=== PATIENT | male | born 1935 | race Caucasian/White ===

== ENCOUNTER 2017-08-29 04:10 | Inpatient (IN) | payer OTHER ==
--- NOTE | 2017-08-29 04:23 | PDOC ---
History of Present Illness - General Chief Complaint: Syncope/Near Syncope Stated Complaint: SUGAR PROBLEM/VOMITING/DIARRHEA Time Seen by Provider: 08/29/17 04:22 - History of Present Illness Initial Comments: 08/29/17 04:39 The patient is an 82 year old male with a history of HTN, HLD, DM who presents for evaluation of syncope, vomiting, diarrhea. The patient reports that he had the sensation to go to the bathroom earlier this evening and syncopized on his way to the bathroom falling to the floor. The patient states that he did lose consciousness, but denies any head trauma. He states that he had an episode of non-bilious, non-bloody vomiting as well as diarrhea after the syncopal episode prompting his presentation to the ED for further evaluation. He otherwise denies fevers, chills, SOB, chest pain, palpitations, abdominal pain, or changes with urination. Past History - Past Medical History Allergies/Adverse Reactions: Allergies Allergy/AdvReac Type Severity Reaction Status Date / Time No Known Allergies Allergy Verified 08/29/17 04:24 Home Medications: Ambulatory Orders Aspirin [ASA -] 81 mg PO DAILY 08/29/17 Atorvastatin Ca [Lipitor] 40 mg PO HS 08/29/17 Ezetimibe [Zetia] 10 mg PO DAILY 08/29/17 Insulin Glargine,Hum.rec.anlog [Lantus] 30 unit SQ HS 08/29/17 Lisinopril 10 mg PO DAILY 08/29/17 Metformin HCl 500 mg PO BID 08/29/17 levETIRAcetam [Keppra -] 500 mg PO BID 08/29/17 Review of Systems - Review of Systems Comments:: 08/29/17 04:42 Constitutional: No fevers, chills, fatigue, malaise HEENT: No Rhinorrhea, nasal congestion, visual changes Cardiovascular: Syncope. No chest pain, palpitations, lightheadedness Respiratory: No Cough, SOB, Hemoptysis, Gastrointestinal: Nausea, Vomiting, Diarrhea. No Abdominal pain, Constipation, Melena Genitourinary: No Dysuria, Frequency, Urgency, Hesitancy, Hematuria, Flank pain Musculoskeletal: No Myalgia, arthralgia Skin: No rashes, itching, bruising, pallor Neurologic: No Headache, Dizziness, Numbness, Weakness, or Tingling Psychiatric: No Hallucinations. No SI or HI *Physical Exam - Physical Exam Comments: 08/29/17 04:42 General Appearance: Nourished. No Apparent Distress HEENT: EOMI, MEENA. No Pharyngeal Erythema, Tonsillar Exudate, Tonsillar Erythema Neck: No Cervical Lymphadenopathy Respiratory/Chest: Lungs Clear, Normal Breath Sounds. No Crackles, Rales, Rhonchi, Wheezing Cardiovascular: Regular Rhythm, Regular Rate. No Murmur, Gallops, Rubs Gastrointestinal/Abdominal: Normal Bowel Sounds, Soft. No Guarding, Rebound, Tenderness Musculoskeletal: No CVA Tenderness Extremity: Normal Capillary Refill Integumentary: Normal Color, Dry, Warm Neurologic: roll grinder II-XII NML intact, Fully Oriented, Alert, Normal Mood/Affect, Normal Response, Motor Strength 5/5. Normal Finger to Nose and Heel to Brunson Heart Score/ECG Review #1 ECG reviewed & interpreted by me at: 04:45 General ECG Interpretation: Sinus Rhythm, Normal Rate, Normal Intervals, No acute ischemic changes ED Treatment Course - LABORATORY CBC & Chemistry Diagram: 08/29/17 04:40 08/29/17 04:40 Medical Decision Making - Medical Decision Making 08/29/17 04:43 The patient is an 82 year old male with a history of HTN, HLD, DM who presents for evaluation of syncope, vomiting, diarrhea. Differential includes but is not limited to: ACS, Hypoglycemia, Vasovagal, Infectious, Metabolic derangement. Given the patient's history of standing to go to the bathroom, it is possible his syncopal episodes was vasovagal in nature from standing to quickly. However, we will obtain a cbc, cmp, troponin, lipase, ua, ekg, coags to evaluate further for possible etiologies. We will treat with iv fluids here in the ED and continue to monitor and reassess. 08/29/17 07:00 CBC, cmp, troponin, lipase are unremarkable. Chest plain film are unremarkable as preliminarily read by ER physician. Given the patient's syncopal episode, we will obtain a CTA to evaluate for any evidence of a AAA. We will continue to monitor and reassess. Patient signed out to the day team pending CT imaging and likely admission. *DC/Admit/Observation/Transfer Diagnosis at time of Disposition: Syncope - Discharge Dispostion Condition at time of disposition: Fair - Referrals - Patient Instructions - Post Discharge Activity
[2017-08-29 04:24] VITALS: BMI 22.8
--- NOTE | 2017-08-29 04:24 | PDOC ---
Attending Attestation - HPI HPI: 08/29/17 05:09 Patient is a 82 year old male with a significant past medical history of Diabetes (on insulin) who presents to the ED with complaints of syncope that occured 2 hours prior to ED arrival. As per patient's son, patient woke up this morning and while walking to the bathroom, lost consciousness and fell onto his right elbow and back. Patient's son reports patient experienced associated symptoms of vomiting and diarrhea, prompting him to come into the ED for further evaluation. Patient's reports patient takes insulin 4 times per day, 3 in the morning and 1 at night, and has not been compliant with medications since Friday. Denies chest pain, Sob. Denies head trauma, change in vision, Denies contact with sick individuals, out of state travelling. Denies any other symptoms. Allergies: none Social history: No smoking. No alcohol. No illicit drugs. Surgical history: None PMD: Dr. Gonzalez 08/29/17 05:09 <Hemal Carrion - Last Filed: 08/29/17 05:09> - Resident Resident Name: Gm Rivera - ED Attending Attestation I have performed the following: I have examined & evaluated the patient, The case was reviewed & discussed with the resident, I agree w/resident's findings & plan, Exceptions are as noted - Physicial Exam PE: GENERAL: Awake, alert, and fully oriented, in no acute distress HEAD: No signs of trauma EYES: PERRLA, EOMI, sclera anicteric, conjunctiva clear ENT: Auricles normal inspection, hearing grossly normal, nares patent, oropharynx clear without exudates. Dry mucosa NECK: Normal ROM, supple, no lymphadenopathy, JVD, or masses LUNGS: Breath sounds equal, clear to auscultation bilaterally. No wheezes, and no crackles HEART: Regular rate and rhythm, normal S1 and S2, no murmurs, rubs or gallops ABDOMEN: Soft, nontender, normoactive bowel sounds. No guarding, no rebound. No masses EXTREMITIES: Normal range of motion, no edema. No clubbing or cyanosis. No cords, erythema, or tenderness NEUROLOGICAL: Cranial nerves II through XII grossly intact. Normal speech, normal gait. Motor and sensation intact. SKIN: Warm, Dry, normal turgor, no rashes or lesions noted. - Medical Decision Making Pt with syncopal event while he was walking to bathroom. Syncope was followed by an episode of vomiting and diarrhea. Patient currently asymptomatic. Will obtain labs including cardiacs and lipase, CXR, EKG. CTA to r/o AAA. <Ana Burgos - Last Filed: 08/29/17 06:04>
[2017-08-29] MEDS ORDERED: SODIUM CHLORIDE 1,000 ML IV STA (04:35)
[2017-08-29 05:17] LABS: HEMOGLOBIN 14.5 GM/dL (11.7-16.9); RDW 13.5 % (11.9-15.9)
[2017-08-29 05:24] LABS: HEMATOCRIT 40.8 % (35.4-49); MCH 32.7 pg (25.7-33.7); MCHC 35.7 g/dl (32.0-35.9); MEAN CELL VOLUME 91.8 fl (80-96); MEAN PLT VOLUME 9.1 fl (7.5-11.1); PLATELET COUNT 147 K/MM3 (134-434); RBC 4.44 M/mm3 (4.00-5.60); WHITE BLOOD COUNT 8.2 K/mm3 (4.0-10.0)
[2017-08-29 05:41] LABS: ALBUMIN 4.1 g/dl (3.4-5.0); ANION GAP 4 (8-16); BLOOD UREA NITROGEN 18 mg/dL (7-18); CALCIUM 8.4 mg/dL (8.5-10.1); CHLORIDE 104 mmol/L (98-107); CO2 30 mmol/L (21-32); CREATININE 1.1 mg/dL (0.7-1.3); GLUCOSE,RANDOM 281 mg/dL (74-106); LIPASE 148 U/L (73-393); POTASSIUM 4.4 mmol/L (3.5-5.1); SGOT/AST 24 U/L (15-37); SGPT/ALT 37 U/L (12-78); SODIUM 138 mmol/L (136-145); TOT PROT 7.5 g/dl (6.4-8.2)
[2017-08-29 05:43] LABS: ALK PHOS 79 U/L (45-117)
[2017-08-29 05:55] LABS: INR 0.99 (0.82-1.09); PROTHROMBIN TIME (PATIENT) 11.2 SEC (9.7-13.0)
[2017-08-29 05:57] LABS: ACTIVATED PTT 28.8 SECONDS (26.9-34.4)
[2017-08-29 07:38] LABS: URINE APPEARANCE CLEAR; URINE BILIRUBIN NEGATIVE (<2.0 mg/dL); URINE COLOR LTYELLOW; URINE GLUCOSE (UA) 3+ (NEGATIVE); URINE KETONE NEGATIVE (NEGATIVE); URINE LEUK ESTERASE NEGATIVE (NEGATIVE); URINE NITRITE NEGATIVE (NEGATIVE); URINE PROTEIN NEGATIVE (NEGATIVE); URINE UROBILINOGEN NEGATIVE mg/dL (0.2-1.0)
--- NOTE | 2017-08-29 07:49 | PDOC ---
*Physical Exam - Vital Signs Last Vital Signs Temp Pulse Resp BP Pulse Ox 97.9 F 79 18 122/62 100 08/29/17 04:22 08/29/17 04:22 08/29/17 04:22 08/29/17 04:22 08/29/17 04:22 - Physical Exam General Appearance: Yes: Nourished, Thin Neck: positive: Trachea midline, Supple Respiratory/Chest: positive: Lungs Clear Cardiovascular: positive: S1, S2 Extremity: positive: Normal Capillary Refill, Normal Inspection Integumentary: positive: Normal Color, Dry, Warm Neurologic: positive: Alert ED Treatment Course - LABORATORY CBC & Chemistry Diagram: 08/29/17 04:40 08/29/17 04:40 - ADDITIONAL ORDERS Additional order review: Laboratory Results 08/29/17 08/29/17 08/29/17 04:40 04:40 04:29 PT with INR 11.20 INR 0.99 PTT (Actin FS) 28.8 Sodium 138 Potassium 4.4 Chloride 104 Carbon Dioxide 30 Anion Gap 4 L BUN 18 Creatinine 1.1 Creat Clearance w eGFR > 60 POC Glucometer [phone] Random Glucose 281 H Calcium 8.4 L Total Bilirubin 1.0 AST 24 ALT 37 Alkaline Phosphatase 79 Creatine Kinase 184 Creatine Kinase Index 0.5 CK-MB (CK-2) < 1.000 Troponin I < 0.02 Total Protein 7.5 Albumin 4.1 Lipase 148 08/29/17 08/29/17 04:40 04:29 RBC 4.44 MCV 91.8 MCHC 35.7 RDW 13.5 MPV 9.1 Neutrophils % No Result Required. Lymphocytes % No Result Required. POC Glucometer [phone] - Medications Given in the ED: ED Medications Discontinued Medications Generic Name Dose Route Start Last Admin Trade Name Freq PRN Reason Stop Dose Admin Sodium Chloride 1,000 mls @ 1,000 mls/hr 08/29/17 04:35 08/29/17 04:51 Normal Saline - IV 08/29/17 05:34 1,000 mls/hr ASDIR STA Administration Medical Decision Making - Medical Decision Making 08/29/17 07:39 Patient signed out by Dr. Rivera (Resident) and Dr. Burgos (Attending) 82 year old male presents for syncopal episode - r/o ACS, hypoglycemia, infectious etiology as well as AAA. Awaiting CTA. 08/29/17 07:49 CTA completed. Patient resting comfortably. 08/29/17 07:55 Troponin (-) x1, CMP unremarkable excepting hyperglycemia (281) - patient will likely require admission for further evaluation of his syncopal episode including KEENA. 08/29/17 09:05 Wet read of CTA shows no AAA, no PE. Will page Dr. Gonzalez for admission. 08/29/17 10:[address] Garcia. Patient counseled on POC. Will continue to monitor while in ED. *DC/Admit/Observation/Transfer Diagnosis at time of Disposition: Syncope - Discharge Dispostion Condition at time of disposition: Fair Admit: Yes - Referrals - Patient Instructions - Post Discharge Activity
--- NOTE | 2017-08-29 09:42 | EKG ---
Test Reason : Blood Pressure : / mmHG Vent. Rate : 079 BPM Atrial Rate : 079 BPM P-R Int : 174 ms QRS Dur : 098 ms QT Int : 380 ms P-R-T Axes : 055 066 063 degrees QTc Int : 435 ms NORMAL SINUS RHYTHM NORMAL ECG NO PREVIOUS ECGS AVAILABLE Confirmed by DIANE VILLASENOR MD ([id number]) on 08/29/2017 9:41:58 AM Referred By: Confirmed By:DIANE VILLASENOR MD
--- NOTE | 2017-08-29 10:08 | HP ---
Admitting History and Physical - Admission History of Present Illness: 82 year old male with a history of HTN, HLD, DM who presents for evaluation of syncope, vomiting, diarrhea. The patient reports that he had the sensation to go to the bathroom earlier this evening and syncopized on his way to the bathroom falling to the floor. The patient states that he did lose consciousness, but denies any head trauma. He states that he had an episode of non-bilious, non-bloody vomiting as well as diarrhea after the syncopal episode prompting his presentation to the ED for further evaluation. He otherwise denies fevers, chills, SOB, chest pain, palpitations, abdominal pain, or changes with urination. - Past Medical History Cardiovascular: Yes: HTN, Hyperlipdemia Pulmonary: No: COPD Gastrointestinal: No: Cancer Heme/Onc: No: Anemia Endocrine: Yes: Diabetes Mellitus - Smoking History Smoking history: Never smoked Home Medications - Allergies Allergies/Adverse Reactions: Allergies Allergy/AdvReac Type Severity Reaction Status Date / Time No Known Allergies Allergy Verified 08/29/17 04:24 - Home Medications Home Medications: Ambulatory Orders Unobtainable [Unobtainable] 08/29/17 Review of Systems - Review of Systems Cardiovascular: denies: Chest Pain Respiratory: denies: SOB, SOB on Exertion Gastrointestinal: reports: Diarrhea, Vomiting. denies: Abdominal Pain Genitourinary: reports: No Symptoms Neurological: reports: Change in LOC, Dizziness, Syncope, Weakness Physical Examination Vital Signs: Vital Signs Temperature 97.9 F 08/29/17 04:22 Pulse Rate 77 08/29/17 07:50 Respiratory Rate 18 08/29/17 07:50 Blood Pressure 124/80 08/29/17 07:50 O2 Sat by Pulse Oximetry (%) 100 08/29/17 07:50 Cardiovascular: Yes: S1, S2 Respiratory: Yes: Regular, CTA Bilaterally Gastrointestinal: Yes: Normal Bowel Sounds, Soft. No: Tenderness Edema: No Neurological: Yes: Alert, Oriented. No: Confusion, Facial Droop Labs: CBC, BMP 08/29/17 04:40 08/29/17 04:40 Imaging - Results Cat Scan: Report Reviewed (CTA NAD) Problem List - Problems (1) Syncope Assessment/Plan: - -may stanislaw been orthostatic -check bp -tele -cardio and neuro -echo and carotid Code(s): R55 - SYNCOPE AND COLLAPSE (2) HTN (hypertension) Assessment/Plan: monitor off meds Code(s): I10 - ESSENTIAL (PRIMARY) HYPERTENSION (3) HLD (hyperlipidemia) Assessment/Plan: check lipids statin Code(s): E78.5 - HYPERLIPIDEMIA, UNSPECIFIED (4) Diabetes Assessment/Plan: -bgm with coverage Code(s): E11.9 - TYPE 2 DIABETES MELLITUS WITHOUT COMPLICATIONS
[2017-08-29] MEDS ORDERED: ASPIRIN COATED 81 MG TABLET.EC ONE (12:18)
[2017-08-29] MEDS: ASPIRIN COATED 81 MG TABLET.EC PO SCH (12:31)
[2017-08-29] MEDS: INSULIN SLIDING SCALE (NOVOLOG) 1 VIAL SQ SCH ×4 (12:31→21:11)
[2017-08-29 12:33] LABS: CHOLESTEROL 143 mg/dL (50-200); HDL CHOLESTEROL 60 mg/dL (40-60); TRIGLYCERIDES 63 mg/dL (35-160)
[2017-08-29] MEDS ORDERED: INSULIN (NOVOLOG) ASPART 100 UNITS/ML 10ML VIAL ONE ×2 (12:36→21:07)
--- NOTE | 2017-08-29 15:26 | CON.CARD ---
Consult Consult Specialty:: Cardiology Referred by:: Dr. Garcia Reason for Consultation:: Syncope - History of Present Illness Chief Complaint: Syncope History of Present Illness: 82 year old man with a PMHx of syncope 5 years ago, HTN, DM (on insulin) who presented to the ED 08/29/2017 with syncope. The patient had brief episode of loss of consciousness this morning while walking to the bathroom, fell onto his right elbow and back, followed by diarrhea and vomiting. He denies chest pain, SOB, palpitation, dizziness, edema , orthopnea or PND. ED tests: ECG 08/29/2017: Sinus rhythm, normal ECG. Echo 08/29/2017: Normal LV size, wall motion and systolic function. LVEF = 60-65% . Normal RV. No significant valvular abnormality. Carotid duplex: Intimal thickening and small plaques. No hemodynamically significant stenosis. CTA of chest and abdomen: No aortic aneurysm. - History Source History Provided By: Patient, Family Member Limitations to Obtaining History: No Limitations - Past Medical History Cardio/Vascular: Yes: HTN, Hyperlipdemia Pulmonary: No: COPD Gastrointestinal: No: Cancer Endocrine: Yes: Diabetes Mellitus - Smoking History Smoking history: Never smoked Home Medications - Allergies Allergies/Adverse Reactions: Allergies Allergy/AdvReac Type Severity Reaction Status Date / Time No Known Allergies Allergy Verified 08/29/17 04:24 - Home Medications Home Medications: Ambulatory Orders Unobtainable [Unobtainable] 08/29/17 Review of Systems - Review of Systems Constitutional: reports: No Symptoms Eyes: reports: No Symptoms HENT: reports: No Symptoms Neck: reports: No Symptoms Cardiovascular: reports: No Symptoms Respiratory: reports: No Symptoms Gastrointestinal: reports: Diarrhea, Vomiting Genitourinary: reports: No Symptoms Breasts: reports: No Symptoms Reported Integumentary: reports: No Symptoms Neurological: reports: Change in LOC Endocrine: reports: No Symptoms Hematology/Lymphatic: reports: No Symptoms Vital Signs: Vital Signs Temperature 97.9 F 08/29/17 04:22 Pulse Rate 77 08/29/17 07:50 Respiratory Rate 18 08/29/17 07:50 Blood Pressure 124/80 08/29/17 07:50 O2 Sat by Pulse Oximetry (%) 100 08/29/17 07:50 General: Well developed. Well nourished. No acute distress. Head: Normocephalic. Atraumatic, Eyes: PERRLA, EOMI. Sclerae anicteric. Conjunctivae clear. Neck: Supple. No JVD. No bruits. Heart: Normal S1, S2: Regularly regular rhythm and rate. No murmur. No gallop or rub. Lungs: Symmetrical air entry. Clear to auscultation. No crackle. No wheezing or rhonchi. Abdomen: Soft. Bowel sound positive. Non tender. No masses. Extremities: No edema. No clubbing or cyanosis. PD 2+, equal bilaterally. Neuro: Intact, no focal findings. AAO X3. - Other Data Labs, Other Data: CBC, BMP 08/29/17 04:40 08/29/17 04:40 INR, PTT INR 0.99 (0.82-1.09) 08/29/17 04:40 Troponin, BNP 08/29/17 08/29/17 04:40 11:52 Troponin I < 0.02 < 0.02 Troponin, BNP 08/29/17 08/29/17 04:40 11:52 Troponin I < 0.02 < 0.02 Assessment/Plan 82 year old man with a PMHx of syncope 5 years ago, HTN, DM (on insulin) who presented to the ED 08/29/2017 with recurrent syncope. ED tests: ECG 08/29/2017: Sinus rhythm, normal ECG. Echo 08/29/2017: Normal LV size, wall motion and systolic function. LVEF = 60-65% . Normal RV. No significant valvular abnormality. Carotid duplex: Intimal thickening and small plaques. No hemodynamically significant stenosis. CTA of chest and abdomen: No aortic aneurysm. -Recurrent syncope, possible vasovagal. The patient had extensive work up in ED. Check orthostasis and rule out hypoglycemia recommended. Out patient cardiac follow up for possible tilt table test. No further cardiac test recommended during this admission. Please call us for reconsult as needed.
--- NOTE | 2017-08-29 19:28 | CONSULT ---
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 Examined at the bedside with his children who confirm the history of multiple fainting spells SINCE CHILDHOOD. All are preceded by a stereotyped "dizziness" followed by LOC with witness "shaking in the past. Was on Tegretol 400 mg q 8hrs for many years, but apparently D/C'ed without consequence as Pt "hasn't fainted in 4 or 5 years." Yesterday awoke from sleep around 2 AM and developed dizziness and LOC. Fell next to his bed. Afterward had persistent nausea and vomiting. CT of head (reviewed): Mild atrophy. Normal for age. No traumatic lesions. Carotid duplex: Intimal thickening without sig stenosis. Elevated BG noted in ER EXAM: No bruits. Cor reg NEURO: MS/speech: Normal CN II-XII: normal without nystagmus Motor: No drift or tremor. Normal strength, tone, artur. Nl reflexes except absent AJ's. Toes downgoing Coord: No FTN dystaxia. Sensory: Reduced vibration feet Gait: Sl wide-based. IMP: Non-focal exam sig for mild-moderate diabetic peripheral neuropathy Syncope vs. Seizure. SUGGEST: Agree with telemetry, cardiac work-up Check orthostatic BP's Begin Keppra 500 mg PO q 12 hrs. Neuro f/u and EEG as out patient. Thank you very much, Edgar Barba MD
[2017-08-29] MEDS: levETIRAcetam 250 MG TABLET (FP) PO SCH (21:11)
[2017-08-29] MEDS: levETIRAcetam 500 MG TABLET (FP) PO SCH (21:11)
[2017-08-29] MEDS: HEPARIN NA (PORCINE) 5,000 UNITS/ML 1ML VIAL SQ SCH (21:11)
[2017-08-29] MEDS ORDERED: ATORVASTATIN CA 20 MG TABLET (FP) PO SCH (22:00)
[2017-08-30] MEDS ORDERED: MAG HYDROX/AL HYDROX/SIMETH 30 ML UNIT-DOSE CUP PO ONE (00:32)
[2017-08-30] MEDS: INSULIN SLIDING SCALE (NOVOLOG) 1 VIAL SQ SCH ×2 (06:18→12:12)
[2017-08-30] MEDS ORDERED: PT OWN MED DRAWER 7, Y5N ONE (06:34)
[2017-08-30 07:28] LABS: BASO % 0.2 % (0-2.0); EOS % 0.8 % (0-4.5); HEMATOCRIT 37.6 % (35.4-49); HEMOGLOBIN 13.2 GM/dL (11.7-16.9); LYMPH % 24.9 % (8-40); MCH 32.2 pg (25.7-33.7); MCHC 35.1 g/dl (32.0-35.9); MEAN CELL VOLUME 91.8 fl (80-96); MEAN PLT VOLUME 9.3 fl (7.5-11.1); MONO % 6.2 % (3.8-10.2); NEUT % 67.9 % (42.8-82.8); PLATELET COUNT 149 K/MM3 (134-434); RDW 13.4 % (11.9-15.9); WHITE BLOOD COUNT 5.8 K/mm3 (4.0-10.0)
[2017-08-30 08:50] LABS: CHLORIDE 102 mmol/L (98-107); POTASSIUM 3.9 mmol/L (3.5-5.1); SODIUM 137 mmol/L (136-145)
[2017-08-30 09:16] LABS: ALBUMIN 3.7 g/dl (3.4-5.0); ALK PHOS 67 U/L (45-117); ANION GAP 8 (8-16); BILIRUBIN,TOTAL 1.2 mg/dL (0.2-1.0); BLOOD UREA NITROGEN 16 mg/dL (7-18); CALCIUM 8.6 mg/dL (8.5-10.1); CO2 27 mmol/L (21-32); CREATININE 0.9 mg/dL (0.7-1.3); GLUCOSE,RANDOM 224 mg/dL (74-106); SGOT/AST 20 U/L (15-37); SGPT/ALT 28 U/L (12-78); TOT PROT 6.8 g/dl (6.4-8.2)
[2017-08-30] MEDS: levETIRAcetam 500 MG TABLET (FP) PO SCH (10:07)
[2017-08-30] MEDS: levETIRAcetam 250 MG TABLET (FP) PO SCH (10:07)
[2017-08-30] MEDS: HEPARIN NA (PORCINE) 5,000 UNITS/ML 1ML VIAL SQ SCH (10:07)
[2017-08-30] MEDS: ASPIRIN COATED 81 MG TABLET.EC PO SCH (10:07)
[2017-08-30] MEDS ORDERED: INSULIN (NOVOLOG) ASPART 100 UNITS/ML 10ML VIAL ONE (11:11)
--- NOTE | 2017-08-30 11:30 | EKG ---
Test Reason : Blood Pressure : / mmHG Vent. Rate : 066 BPM Atrial Rate : 066 BPM P-R Int : 184 ms QRS Dur : 100 ms QT Int : 400 ms P-R-T Axes : 056 050 057 degrees QTc Int : 419 ms NORMAL SINUS RHYTHM WITH SINUS ARRHYTHMIA NORMAL ECG WHEN COMPARED WITH ECG OF 29-AUG-2017 10:33, NO SIGNIFICANT CHANGE WAS FOUND Confirmed by BONILLA SOLIS MD ([id number]) on 08/30/2017 11:30:38 AM Referred By: Dimitri JARRELL Confirmed By:BONILLA SOLIS MD
--- NOTE | 2017-08-30 11:34 | EKG ---
Test Reason : Blood Pressure : / mmHG Vent. Rate : 082 BPM Atrial Rate : 082 BPM P-R Int : 186 ms QRS Dur : 086 ms QT Int : 362 ms P-R-T Axes : 055 042 057 degrees QTc Int : 422 ms NORMAL SINUS RHYTHM LOW VOLTAGE QRS BORDERLINE ECG WHEN COMPARED WITH ECG OF 29-AUG-2017 04:45, NO SIGNIFICANT CHANGE WAS FOUND Confirmed by BONILLA SOLIS MD ([id number]) on 08/30/2017 11:33:52 AM Referred By: Confirmed By:BONILLA SOLIS MD
--- NOTE | 2017-08-30 12:34 | DS ---
Physical Examination Vital Signs: Vital Signs Temperature 98.2 F 08/30/17 05:45 Pulse Rate 68 08/30/17 05:45 Respiratory Rate 16 08/30/17 08:47 Blood Pressure 120/54 08/30/17 05:45 O2 Sat by Pulse Oximetry (%) 96 08/30/17 08:47 Constitutional: Yes: Well Nourished, No Distress, Calm Cardiovascular: Yes: Regular Rate and Rhythm Respiratory: Yes: Regular Gastrointestinal: Yes: Normal Bowel Sounds, Soft Neurological: Yes: Alert, Oriented Psychiatric: Yes: Alert, Oriented Labs: CBC, BMP 08/30/17 06:30 08/30/17 06:30 Discharge Summary Reason For Visit: SYNCOPE Current Active Problems Diabetes (Acute) HLD (hyperlipidemia) (Acute) HTN (hypertension) (Acute) Syncope (Acute) Hospital Course: 82 year old male with a history of HTN, HLD, DM who presents for evaluation of syncope, vomiting, diarrhea. The patient reports that he had the sensation to go to the bathroom earlier this evening and syncopized on his way to the bathroom falling to the floor. The patient states that he did lose consciousness, but denies any head trauma. He states that he had an episode of non-bilious, non-bloody vomiting as well as diarrhea after the syncopal episode prompting his presentation to the ED for further evaluation. He otherwise denies fevers, chills, SOB, chest pain, palpitations, abdominal pain, or changes with urination. Condition: Stable - Instructions Referrals: Kelvin Gonzalez MD [Primary Care Provider] - Edgar Barba MD [Staff Physician] - Disposition: HOME - Home Medications Comprehensive Discharge Medication List: Ambulatory Orders Aspirin [ASA -] 81 mg PO DAILY 08/29/17 Atorvastatin Ca [Lipitor] 40 mg PO HS 08/29/17 Ezetimibe [Zetia] 10 mg PO DAILY 08/29/17 Insulin Glargine,Hum.rec.anlog [Lantus] 30 unit SQ HS 08/29/17 Lisinopril 10 mg PO DAILY 08/29/17 Metformin HCl 500 mg PO BID 08/29/17 levETIRAcetam [Keppra -] 500 mg PO BID 08/29/17
[2017-08-30 13:34] VITALS: BP 113/60; PULSE 70; TEMP 98.5
== END 2017-08-30 14:06 | disposition home or self-care (01) | DRG 312 ==
LOC: JER 04:10 → JERBED 09:38 → OBSVTOIN 10:03 → J4S 15:03
PROVIDERS: ADMIT Family Medicine; ATTEND Family Medicine
DX: R55 Syncope and collapse (principal); E11.42 Type 2 diabetes mellitus with diabetic polyneuropathy; E78.5 Hyperlipidemia, unspecified; I10 Essential (primary) hypertension; R11.10 Vomiting, unspecified; R19.7 Diarrhea, unspecified; Z79.4 Long term (current) use of insulin
CPT/HCPCS: 36415; 70450-TC; 71045-TC-FY; 71275-TC; 74174-TC; 80053; 80061; 81003; 82550; 82553; 82607; 82962; 83036; 83690; 83721; 84443; 84484; 85025; 85610; 85730; 87086; 87186; 93005; 93010; 93306-TC; 93880-TC; 99285-25; G0378; J1644; J7030

== ENCOUNTER 2020-05-07 11:47 | Observation (INO) | payer OTHER ==
[2020-05-07 11:56] VITALS: BMI 24.5
[2020-05-07 13:04] LABS: BASO % 0.3 % (0-2.0); EOS % 0.2 % (0-4.5); HEMATOCRIT 45.7 % (35.4-49); HEMOGLOBIN 15.7 GM/dL (11.7-16.9); LYMPH % 10.5 % (8-40); MCH 31.8 pg (25.7-33.7); MCHC 34.4 g/dl (32.0-35.9); MEAN CELL VOLUME 92.3 fl (80-96); MEAN PLT VOLUME 9.6 fl (7.5-11.1); MONO % 4.5 % (3.8-10.2); NEUT % 84.5 % (42.8-82.8); PLATELET COUNT 158 K/MM3 (134-434); RBC 4.95 M/mm3 (4.00-5.60); RDW 12.9 % (11.9-15.9); WHITE BLOOD COUNT 7.9 K/mm3 (4.0-10.0)
[2020-05-07 13:04] LABS: EPI CELLS 4 /uL (0-25.1); HYALINE CASTS 1 /uL (0-3.1); URINE APPEARANCE CLEAR; URINE BACTERIA 4 /uL (0-1359); URINE BILIRUBIN NEGATIVE (NEGATIVE); URINE COLOR YELLOW; URINE GLUCOSE (UA) 2+ (NEGATIVE); URINE KETONE NEGATIVE (NEGATIVE); URINE LEUK ESTERASE NEGATIVE (NEGATIVE); URINE NITRITE NEGATIVE (NEGATIVE); URINE PROTEIN 1+ (NEGATIVE); URINE RBC 3 /uL (0-23.9); URINE UROBILINOGEN 0.2 mg/dL (0.2-1.0); URINE WBC 2 /uL (0-25.8)
[2020-05-07 13:25] LABS: CHLORIDE 104 mmol/L (98-107); SODIUM 139 mmol/L (136-145)
[2020-05-07 13:27] LABS: ALBUMIN 3.9 g/dl (3.4-5.0); ANION GAP 6 MMOL/L (8-16); BLOOD UREA NITROGEN 16.8 mg/dL (7-18); CALCIUM 8.8 mg/dL (8.5-10.1); CO2 29 mmol/L (21-32); GLUCOSE,RANDOM 186 mg/dL (74-106)
[2020-05-07 13:30] LABS: SGOT/AST 9 U/L (15-37); SGPT/ALT 16 U/L (13-61)
[2020-05-07 13:32] LABS: BILIRUBIN,TOTAL 0.9 mg/dL (0.2-1); TOT PROT 7.6 g/dl (6.4-8.2)
[2020-05-07 13:33] LABS: ALK PHOS 103 U/L (45-117)
[2020-05-07] MEDS ORDERED: ACETAMINOPHEN 325 MG TABLET (FP) PO PRN (18:08)
[2020-05-07] MEDS ORDERED: levETIRAcetam 500 MG TABLET (FP) PO ONE (21:58)
[2020-05-07] MEDS ORDERED: INSULIN (LEVEMIR) 100 UNITS/ML UNITS SQ SCH (22:00)
[2020-05-07] MEDS: levETIRAcetam 500 MG TABLET (FP) PO SCH (22:01)
[2020-05-07] MEDS: INSULIN SLIDING SCALE (NOVOLOG) 1 VIAL SQ SCH (22:01)
[2020-05-08 06:01] LABS: HEMATOCRIT 43.9 % (35.4-49); HEMOGLOBIN 15.5 GM/dL (11.7-16.9); MCH 32.3 pg (25.7-33.7); MCHC 35.3 g/dl (32.0-35.9); MEAN CELL VOLUME 91.6 fl (80-96); MEAN PLT VOLUME 9.3 fl (7.5-11.1); PLATELET COUNT 173 K/MM3 (134-434); RBC 4.79 M/mm3 (4.00-5.60); WHITE BLOOD COUNT 5.8 K/mm3 (4.0-10.0)
[2020-05-08 06:23] LABS: ALBUMIN 3.6 g/dl (3.4-5.0)
[2020-05-08 06:24] LABS: BLOOD UREA NITROGEN 15.3 mg/dL (7-18)
[2020-05-08] MEDS: INSULIN SLIDING SCALE (NOVOLOG) 1 VIAL SQ SCH ×3 (07:24→17:40)
[2020-05-08] MEDS ORDERED: ASPIRIN COATED 81 MG TABLET.EC PO SCH (10:00)
[2020-05-08] MEDS ORDERED: levETIRAcetam 500 MG TABLET (FP) PO ONE (10:34)
[2020-05-08] MEDS ORDERED: ASPIRIN COATED 81 MG TABLET.EC ONE (10:34)
[2020-05-08] MEDS: levETIRAcetam 500 MG TABLET (FP) PO SCH (10:36)
[2020-05-08 17:39] VITALS: BP 141/72; PULSE 58; TEMP 98
[2020-05-08] MEDS ORDERED: INSULIN SLIDING SCALE (NOVOLOG) 1 VIAL SQ ONE (17:46)
== END 2020-05-08 18:00 | disposition home or self-care (01) ==
LOC: JER 11:47 → SUPCPDRO 11:47 → JERBED 13:42
PROVIDERS: ADMIT Family Medicine; ATTEND Family Medicine
PROC: 3E013VG Introduction of Insulin into Subcutaneous Tissue, Percutaneous Approach (ICD-10-PCS; principal; 2020-05-07)
PROC: 3E023GC Introduction of Other Therapeutic Substance into Muscle, Percutaneous Approach (ICD-10-PCS; 2020-05-07)
DX: R00.1 Bradycardia, unspecified (principal); G40.909 Epilepsy, unspecified, not intractable, without status epilepticus; E11.9 Type 2 diabetes mellitus without complications; I10 Essential (primary) hypertension; I44.0 Atrioventricular block, first degree; Z79.4 Long term (current) use of insulin; I44.30 Unspecified atrioventricular block; E78.5 Hyperlipidemia, unspecified
CPT/HCPCS: 36415; 71045-TC-FY; 80053; 81003; 82550; 82962; 84439; 84443; 84484; 85025; 85027; 87086; 93005; 93010; 93880-TC; 96372; 99285-25; C9803; G0378; U0003

== ENCOUNTER 2020-10-05 14:53 | Emergency (ER) | payer OTHER ==
[2020-10-05 15:03] VITALS: TEMP 98.4; BMI 23.4
[2020-10-05 17:10] LABS: BASO % 0.4 % (0-2.0); EOS % 0.6 % (0-4.5); HEMATOCRIT 41.6 % (35.4-49); HEMOGLOBIN 14.1 GM/dL (11.7-16.9); LYMPH % 16.9 % (8-40); MCH 31.9 pg (25.7-33.7); MEAN CELL VOLUME 93.9 fl (80-96); MEAN PLT VOLUME 9.8 fl (7.5-11.1); MONO % 9.4 % (3.8-10.2); NEUT % 72.7 % (42.8-82.8); PLATELET COUNT 156 K/MM3 (134-434); RBC 4.43 M/mm3 (4.00-5.60); WHITE BLOOD COUNT 5.6 K/mm3 (4.0-10.0)
[2020-10-05 17:21] LABS: CHLORIDE 96 mmol/L (98-107); SODIUM 132 mmol/L (136-145)
[2020-10-05 17:24] LABS: ALBUMIN 3.3 g/dl (3.4-5.0); ANION GAP 5 MMOL/L (8-16); BLOOD UREA NITROGEN 22.6 mg/dL (7-18); CO2 31 mmol/L (21-32)
[2020-10-05 17:27] LABS: CREATININE 1.1 mg/dL (0.55-1.3); SGOT/AST 19 U/L (15-37)
[2020-10-05 17:28] LABS: SGPT/ALT 14 U/L (13-61)
[2020-10-05 17:30] LABS: ALK PHOS 104 U/L (45-117)
[2020-10-05 17:45] LABS: GLUCOSE,RANDOM 452 mg/dL (74-106)
[2020-10-05] MEDS ORDERED: LACTATED RINGERS SOLUTION 1000 ML INFUS.BAG IV ONE ×2 (17:54→19:44)
[2020-10-05 18:31] LABS: URINE APPEARANCE CLEAR; URINE BILIRUBIN NEGATIVE (NEGATIVE); URINE COLOR YELLOW; URINE GLUCOSE (UA) 3+ (NEGATIVE); URINE KETONE NEGATIVE (NEGATIVE); URINE LEUK ESTERASE NEGATIVE (NEGATIVE); URINE NITRITE NEGATIVE (NEGATIVE); URINE PROTEIN NEGATIVE (NEGATIVE); URINE UROBILINOGEN 0.2 mg/dL (0.2-1.0)
[2020-10-05] MEDS ORDERED: INSULIN (NOVOLOG) ASPART 100 UNITS/ML 10ML VIAL SQ ONE (20:27)
[2020-10-05 20:39] VITALS: BP 137/78; PULSE 62
== END 2020-10-05 20:38 | disposition home or self-care (01) ==
LOC: JER 14:53
DX: E11.65 Type 2 diabetes mellitus with hyperglycemia (principal)
CPT/HCPCS: 36415; 71045-TC-FY; 80053; 81003; 82010; 82962; 85025; 87086; 93005; 93010; 99285-25; C9803; U0003; U0005

== ENCOUNTER 2022-07-29 11:08 | Emergency (ER) | payer OTHER ==
[2022-07-29 11:23] VITALS: BMI 26.2
[2022-07-29] MEDS ORDERED: LIDOCAINE 5% TOPICAL PATCH TP ONE (12:17)
[2022-07-29] MEDS ORDERED: oxyCODONE HCL 5 MG TABLET PO ONE (12:17)
[2022-07-29] MEDS ORDERED: oxyCODONE HCL 5 MG TABLET ONE (12:35)
[2022-07-29] MEDS ORDERED: LIDOCAINE 5% TOPICAL PATCH ONE (12:35)
[2022-07-29 12:42] LABS: BASO % 0.4 % (0-2.0); EOS % 0.6 % (0-4.5); HEMATOCRIT 43.7 % (35.4-49); HEMOGLOBIN 15.1 GM/dL (11.7-16.9); LYMPH % 25.6 % (8-40); MCH 30.7 pg (25.7-33.7); MCHC 34.6 g/dl (32.0-35.9); MEAN CELL VOLUME 88.8 fl (80-96); MEAN PLT VOLUME 8.8 fl (7.5-11.1); MONO % 5.6 % (3.8-10.2); NEUT % 67.8 % (42.8-82.8); PLATELET COUNT 160 10^3/uL (134-434); RBC 4.92 M/mm3 (4.00-5.60); RDW 13.3 % (11.9-15.9); WHITE BLOOD COUNT 4.8 K/mm3 (4.0-10.0)
[2022-07-29 13:03] LABS: CALCIUM 9.3 mg/dL (8.5-10.1)
[2022-07-29 13:05] LABS: BLOOD UREA NITROGEN 16.6 mg/dL (7-18)
[2022-07-29 13:08] LABS: BILIRUBIN,TOTAL 1.2 mg/dL (0.2-1); TOT PROT 7.7 g/dl (6.4-8.2)
[2022-07-29] MEDS ORDERED: MAG HYDROX/AL HYDROX/SIMETH 30 ML UNIT-DOSE CUP PO ONE (13:27)
[2022-07-29] MEDS ORDERED: MAG HYDROX/AL HYDROX/SIMETH 30 ML UNIT-DOSE CUP ONE (14:13)
[2022-07-29 14:53] VITALS: BP 138/60; PULSE 65; RESP 19; TEMP 97.2
[2022-07-29] MEDS ORDERED: LIDOCAINE PATCH REMOVAL MC ONE (22:00)
== END 2022-07-29 15:51 | disposition home or self-care (01) ==
LOC: JERFT 11:08 → JER 11:08
DX: M54.50 Low back pain, unspecified (principal)
CPT/HCPCS: 36415; 71045-TC-FY; 80053; 83880; 84484; 85025; 93005; 93010; 99285-25

== ENCOUNTER 2022-10-01 04:32 | Day surgery (SDC) | payer OTHER ==
[2022-09-26 11:42] VITALS: BMI 25.3
[2022-10-01] MEDS ORDERED: BUPIVACAINE HCL/PF 0.75% 10 ML VIAL ONE ×2 (07:44→14:20)
[2022-10-01] MEDS ORDERED: LIDOCAINE HCL/PF 1% SDV 5ML VIAL ONE (07:45)
[2022-10-01] MEDS ORDERED: ACETAMINOPHEN 500 MG TABLET (FP) PO PRN (12:44)
[2022-10-01 14:01] VITALS: RESP 20
[2022-10-01] MEDS ORDERED: DEXAMETHASONE SOD PHOSPHATE 10 MG/1 ML VIAL ONE (14:14)
[2022-10-01 17:32] VITALS: BP 142/67; PULSE 62; TEMP 97.2
== END 2022-10-01 15:14 | disposition home or self-care (01) ==
LOC: JASU-SURG 04:32
PROVIDERS: ATTEND Pain Medicine Pain Medicine
PROC: 3E0T33Z Introduction of Anti-inflammatory into Peripheral Nerves and Plexi, Percutaneous Approach (ICD-10-PCS; 2022-10-01)
PROC: 3E0T3BZ Introduction of Anesthetic Agent into Peripheral Nerves and Plexi, Percutaneous Approach (ICD-10-PCS; principal; 2022-10-01 14:44)
DX: M54.16 Radiculopathy, lumbar region (principal)
CPT/HCPCS: 76000-TC-FY; J1100

== ENCOUNTER 2022-12-03 04:45 | Day surgery (SDC) | payer OTHER ==
[2022-11-27 16:17] VITALS: BMI 25.3
[~2022-12-03 04:45] MED LIST: BUPIVACAINE HCL/PF 0.75% 10 ML VIAL NR ONE; LIDOCAINE HCL 1% PRESERVATIVE FREE - 30ML VIAL IJ ONE
[2022-12-03 10:14] VITALS: RESP 18
[2022-12-03] MEDS ORDERED: LIDOCAINE HCL 1% PRESERVATIVE FREE - 30ML VIAL IJ ONE (12:15)
[2022-12-03] MEDS ORDERED: BUPIVACAINE HCL/PF 0.75% 10 ML VIAL NR ONE (12:22)
[2022-12-03 13:36] VITALS: BP 130/63; PULSE 59; TEMP 97.7
[2022-12-03] MEDS ORDERED: ACETAMINOPHEN 500 MG TABLET (FP) PO PRN (15:59)
== END 2022-12-03 13:20 | disposition home or self-care (01) ==
LOC: JASU-SURG 04:45
PROVIDERS: ATTEND Pain Medicine Pain Medicine
PROC: 3E0T33Z Introduction of Anti-inflammatory into Peripheral Nerves and Plexi, Percutaneous Approach (ICD-10-PCS; 2022-12-03)
PROC: 3E0T3BZ Introduction of Anesthetic Agent into Peripheral Nerves and Plexi, Percutaneous Approach (ICD-10-PCS; principal; 2022-12-03 11:45)
DX: M47.816 Spondylosis without myelopathy or radiculopathy, lumbar region (principal)
CPT/HCPCS: 76000-TC-FY

== ENCOUNTER 2022-12-27 04:23 | Day surgery (SDC) | payer OTHER ==
[2022-12-26 10:09] VITALS: BMI 20.9
[2022-12-27] MEDS ORDERED: LIDOCAINE HCL/PF 1% SDV 5ML VIAL ONE (08:03)
[2022-12-27] MEDS ORDERED: LIDOCAINE HCL/PF 2% SDV 5ML VIAL ONE (08:03)
[2022-12-27] MEDS ORDERED: BUPIVACAINE HCL/PF 0.75% 10 ML VIAL ONE (08:03)
[2022-12-27] MEDS ORDERED: DEXAMETHASONE SOD PHOSPHATE 10 MG/1 ML VIAL ONE (08:03)
[2022-12-27] MEDS ORDERED: LIDOCAINE HCL/PF 2% SDV 5ML VIAL INF ONE ×2 (10:02→11:02)
[2022-12-27] MEDS ORDERED: LIDOCAINE HCL 1% PRESERVATIVE FREE - 30ML VIAL INF ONE ×2 (10:02→11:02)
[2022-12-27] MEDS ORDERED: ACETAMINOPHEN 500 MG TABLET (FP) PO PRN (10:33)
[2022-12-27] MEDS ORDERED: BUPIVACAINE HCL/PF 0.75% 10 ML VIAL NR ONE (11:03)
[2022-12-27] MEDS ORDERED: DEXAMETHASONE SOD PHOSPHATE 10 MG/1 ML VIAL IVPUSH ONE (11:03)
[2022-12-27 13:13] VITALS: BP 126/61; PULSE 52; RESP 20; TEMP 97.7
== END 2022-12-27 12:25 | disposition home or self-care (01) ==
LOC: JASU-SURG 04:23
PROVIDERS: ATTEND Pain Medicine Pain Medicine
PROC: 015B3ZZ Destruction of Lumbar Nerve, Percutaneous Approach (ICD-10-PCS; principal; 2022-12-27 11:00)
DX: M47.816 Spondylosis without myelopathy or radiculopathy, lumbar region (principal)
CPT/HCPCS: 76000-TC-FY; 82962; J1100

== ENCOUNTER 2023-04-26 09:35 | Observation (INO) | payer OTHER ==
[2023-04-26] MEDS ORDERED: SODIUM CHLORIDE 0.9% 500 ML INFUS.BAG IV ONE (11:23)
[2023-04-26 11:39] LABS: BASO % 0.1 % (0-2.0); HEMATOCRIT 41.2 % (35.4-49); HEMOGLOBIN 14.2 GM/dL (11.7-16.9); LYMPH % 4.8 % (8-40); MCH 31.6 pg (25.7-33.7); MCHC 34.5 g/dl (32.0-35.9); MEAN CELL VOLUME 91.7 fl (80-96); MEAN PLT VOLUME 9.5 fl (7.5-11.1); MONO % 5.6 % (3.8-10.2); NEUT % 89.5 % (42.8-82.8); PLATELET COUNT 130 10^3/uL (134-434); RBC 4.49 M/mm3 (4.00-5.60); RDW 13.8 % (11.9-15.9)
[2023-04-26 11:57] LABS: POTASSIUM 4.1 mmol/L (3.5-5.1)
[2023-04-26 12:00] LABS: BLOOD UREA NITROGEN 19.5 mg/dL (7-18); CALCIUM 9.8 mg/dL (8.5-10.1)
[2023-04-26 12:01] LABS: ALBUMIN 3.8 g/dl (3.4-5.0)
[2023-04-26 12:04] LABS: CREATININE 1.3 mg/dL (0.55-1.3)
[2023-04-26 12:05] LABS: TOT PROT 7.4 g/dl (6.4-8.2)
[2023-04-26 13:09] LABS: MAGNESIUM 1.7 mg/dL (1.8-2.4)
[2023-04-26 13:13] LABS: PHOSPHOROUS 2.8 mg/dL (2.5-4.9)
[2023-04-26] MEDS ORDERED: MAGNESIUM SULFATE IN WATER 2 GM/50 ML IVPB IVPB ONE ×2 (13:29→13:44)
[2023-04-26 13:56] LABS: PH,URINE 5.5 (5.0-8.0); URINE APPEARANCE CLEAR; URINE BILIRUBIN NEGATIVE (NEGATIVE); URINE COLOR YELLOW; URINE GLUCOSE (UA) 3+ (NEGATIVE); URINE KETONE NEGATIVE (NEGATIVE); URINE LEUK ESTERASE NEGATIVE (NEGATIVE); URINE NITRITE NEGATIVE (NEGATIVE); URINE PROTEIN NEGATIVE (NEGATIVE); URINE UROBILINOGEN 0.2 mg/dL (0.2-1.0)
[2023-04-26] MEDS ORDERED: ACETAMINOPHEN 325 MG TABLET (FP) PO PRN (15:55)
[2023-04-26] MEDS: INSULIN SLIDING SCALE (NOVOLOG) 1 VIAL SQ SCH ×2 (16:22→21:36)
[2023-04-26] MEDS ORDERED: levETIRAcetam 500 MG TABLET (FP) PO ONE (21:27)
[2023-04-26] MEDS: levETIRAcetam 500 MG TABLET (FP) PO SCH (21:36)
[2023-04-26 23:55] VITALS: BMI 22.8
[2023-04-27] MEDS: INSULIN SLIDING SCALE (NOVOLOG) 1 VIAL SQ SCH ×4 (06:35→22:03)
[2023-04-27] MEDS: levETIRAcetam 500 MG TABLET (FP) PO SCH ×2 (09:27→22:04)
[2023-04-27] MEDS ORDERED: FLU VACCINE (FLULAVAL) PF 60 MCG/0.5 ML SYRINGE 2023-2024 IM ONE (10:00)
[2023-04-27] MEDS ORDERED: CEFTRIAXONE 1 GM in DEXTROSE 5%-WATER - 50 ML IVPB ONE (10:19)
[2023-04-27] MEDS ORDERED: INSULIN (NOVOLOG) ASPART 100 UNITS/ML 10ML VIAL ONE ×3 (11:02→22:02)
[2023-04-27 15:56] VITALS: RESP 18
[2023-04-28] MEDS: INSULIN SLIDING SCALE (NOVOLOG) 1 VIAL SQ SCH ×2 (06:27→11:03)
[2023-04-28 07:21] LABS: HEMATOCRIT 37.7 % (35.4-49); MCH 31.6 pg (25.7-33.7); MCHC 34.5 g/dl (32.0-35.9); MEAN CELL VOLUME 91.7 fl (80-96); MEAN PLT VOLUME 9.6 fl (7.5-11.1); PLATELET COUNT 128 10^3/uL (134-434); RBC 4.12 M/mm3 (4.00-5.60); RDW 13.7 % (11.9-15.9); WHITE BLOOD COUNT 9.4 K/mm3 (4.0-10.0)
[2023-04-28 07:28] LABS: CALCIUM 9.2 mg/dL (8.5-10.1)
[2023-04-28 07:29] LABS: ALBUMIN 3.1 g/dl (3.4-5.0); BLOOD UREA NITROGEN 19.7 mg/dL (7-18)
[2023-04-28 07:32] LABS: CREATININE 0.9 mg/dL (0.55-1.3)
[2023-04-28 07:33] LABS: TOT PROT 6.4 g/dl (6.4-8.2)
[2023-04-28 07:35] LABS: BILIRUBIN,TOTAL 0.9 mg/dL (0.2-1)
[2023-04-28 09:41] VITALS: BP 114/64; PULSE 51; TEMP 98.2
[2023-04-28] MEDS: levETIRAcetam 500 MG TABLET (FP) PO SCH (09:42)
[2023-04-28] MEDS ORDERED: CEFTRIAXONE 1 GM in DEXTROSE 5%-WATER - 50 ML IVPB SCH (10:00)
[2023-04-28] MEDS ORDERED: CEFTRIAXONE 1 GM in DEXTROSE 5%-WATER - 50 ML IVPB ONE ×2 (11:04→11:15)
== END 2023-04-28 12:59 | disposition home or self-care (01) ==
LOC: JER 09:35 → JERBED 16:18 → J4W 22:57
PROVIDERS: ADMIT Internal Medicine; ATTEND Internal Medicine
PROC: 3E03329 Introduction of Other Anti-infective into Peripheral Vein, Percutaneous Approach (ICD-10-PCS; principal; 2023-04-26)
PROC: 3E013VG Introduction of Insulin into Subcutaneous Tissue, Percutaneous Approach (ICD-10-PCS; 2023-04-26)
PROC: 3E033GC Introduction of Other Therapeutic Substance into Peripheral Vein, Percutaneous Approach (ICD-10-PCS; 2023-04-26)
PROC: 3E0337Z Introduction of Electrolytic and Water Balance Substance into Peripheral Vein, Percutaneous Approach (ICD-10-PCS; 2023-04-26)
DX: N39.0 Urinary tract infection, site not specified (principal); E11.65 Type 2 diabetes mellitus with hyperglycemia; N40.0 Benign prostatic hyperplasia without lower urinary tract symptoms; R26.81 Unsteadiness on feet; E78.5 Hyperlipidemia, unspecified; R55 Syncope and collapse; I10 Essential (primary) hypertension; G89.29 Other chronic pain; M54.50 Low back pain, unspecified; R56.9 Unspecified convulsions; Z98.49 Cataract extraction status, unspecified eye
CPT/HCPCS: 0241U-QW; 36415; 71046-TC-FY; 80053; 81003; 82550; 82962; 83735; 84100; 84484; 85025; 85027; 87086; 93005; 93010; 96365; 96366; 96367; 96372; 99285-25; G0378